=== PATIENT | female | born 1950 ===

== ENCOUNTER → 2019-10-19 | Outpatient (CLI) | payer OTHER, MEDICARE | END | disposition home or self-care (01) | LOC: PLD 08:43 → LAB SHORT 08:43 | DX: L57.0 Actinic keratosis (principal) | CPT/HCPCS: 88305 ==

== ENCOUNTER → 2020-12-08 | Outpatient (CLI) | payer OTHER, MEDICARE | LOC: LAB 14:36 → LAB SHORT 14:36 | DX: D48.5 Neoplasm of uncertain behavior of skin (principal); D17.1 Benign lipomatous neoplasm of skin and subcutaneous tissue of trunk | CPT/HCPCS: 88305 ==